=== PATIENT | female | born 1985 | race Hispanic/Latino ===

== ENCOUNTER 2023-02-06 06:56 | Day surgery (SDC) | payer OTHER ==
[2023-02-05 14:46] LABS: BASOPHILS % (AUTO) 0.8 % (0.0-5.0); EOSINOPHILS % (AUTO) 3.4 % (0.0-8.0); HEMATOCRIT 34.3 % (36-48); LYMPHOCYTES % (AUTO) 45.1 % (21.0-51.0); MEAN CORPUSCULAR HEMOGLOBIN 22.1 pg (27.0-33.0); MEAN CORPUSCULAR HGB CONC 27.7 g/dL (32.0-36.0); MEAN CORPUSCULAR VOLUME 79.8 fL (79-99); MONOCYTES % (AUTO) 7.9 % (3.0-13.0); NEUTROPHILS % (AUTO) 42.5 % (40.0-77.0); PLATELET COUNT (AUTO) 253 K/uL (130-400); RED CELL DISTRIBUTION WIDTH 18.4 % (11.0-15.5); WHITE BLOOD COUNT (AUTO) 3.8 K/uL (4.8-10.8)
[2023-02-05 15:09] LABS: ALBUMIN 3.6 g/dL (3.5-5.0); CREATININE 0.7 mg/dL (0.5-1.5); POTASSIUM 3.8 mmol/L (3.5-5.1); TOTAL PROTEIN, SERUM 7.5 g/dL (6.0-8.3)
[2023-02-05 15:13] VITALS: BP 117/78
[2023-02-06] VITALS (15 sets, daily range): BP systolic 108–129; BP diastolic 61–88
[~2023-02-06] VITALS: Ht 157.5 cm; Wt 60.1 kg
[~2023-02-06 06:56] MED LIST: BUPIVACAINE/PF 0.25% 30ML VIAL IJ ONE
[2023-02-06] MEDS ORDERED: LACTATED RINGERS 1000ML 1,000 ML IV ONE (07:57)
[2023-02-06] MEDS ORDERED: METRONIDAZOLE 500MG/100ML BAG 200 ML ONE (07:57)
[2023-02-06] MEDS ORDERED: CEFAZOLIN SODIUM 2 GM VIAL ONE (07:57)
[2023-02-06] MEDS ORDERED: SUCCINYLCHOLINE 200MG/10ML SYR ONE (09:19)
[2023-02-06] MEDS ORDERED: PROPOFOL 10 MG/ML 20ML VIAL IV ONE (09:19)
[2023-02-06] MEDS ORDERED: MIDAZOLAM HCL 1 MG/ML 2ML VIAL ONE (09:19)
[2023-02-06] MEDS ORDERED: ONDANSETRON 4MG INJ ONE (09:20)
[2023-02-06] MEDS ORDERED: FENTANYL CITRATE PF 50 MCG/1 ML 2ML VIAL ONE ×2 (09:20→11:09)
[2023-02-06] MEDS ORDERED: ROCURONIUM 10MG/1ML SYR 10 MG/ML ML ONE (09:20)
[2023-02-06] MEDS ORDERED: LIDOCAINE HCL MPF 1% 5ML VIAL ONE (09:23)
[2023-02-06] MEDS ORDERED: BUPIVACAINE/PF 0.25% 30ML VIAL IJ ONE ×2 (09:38→10:36)
[2023-02-06] MEDS ORDERED: PHENYLEPHRINE HCL 10 MG/ML 1ML VIAL IV ONE (10:16)
[2023-02-06] MEDS ORDERED: GLYCOPYRROLATE 1 MG/5 ML SYRINGE ONE (11:02)
[2023-02-06] MEDS ORDERED: NEOSTIGMINE 5MG/5ML SYR IV ONE (11:02)
[2023-02-06] MEDS ORDERED: METOCLOPRAMIDE 10 MG/2 ML VIAL ONE (11:20)
== END 2023-02-06 12:55 | disposition home or self-care (01) ==
LOC: DAH 06:56
PROVIDERS: ATTEND Surgery
DX: C16.9 Malignant neoplasm of stomach, unspecified (principal); Z20.822 Contact with and (suspected) exposure to COVID-19; K21.9 Gastro-esophageal reflux disease without esophagitis; Z79.01 Long term (current) use of anticoagulants; Z79.899 Other long term (current) drug therapy; Z90.49 Acquired absence of other specified parts of digestive tract; Z72.89 Other problems related to lifestyle
CPT/HCPCS: 87426; 80053; 85025; 86850; 86900; 86922; 86901; 86905 ×2; 86870; 81025; 36415; 93005; 43235; 49320; A4222 ×2; A4663; J7120 ×2; J3010 ×2; J0330; J3490 ×5; J2710; J2250; J2704; J2405; J2765; J2370; J0690; G0168; A4649; A4215 ×2; A4223; A4221; J7030; A4600